=== PATIENT | female | born 1955 | race Caucasian/White ===

== ENCOUNTER 2021-05-04 14:17 | Outpatient (CLI) | payer MEDICARE | END 2021-05-04 14:18 | disposition home or self-care (01) | LOC: CSHMAMMO 14:17 | PROVIDERS: ATTEND Obstetrics & Gynecology | DX: Z12.31 Encounter for screening mammogram for malignant neoplasm of breast (principal); Z80.3 Family history of malignant neoplasm of breast | CPT/HCPCS: 77063; 77067 ==

== ENCOUNTER 2024-04-09 11:44 | Outpatient (CLI) | payer MEDICARE | END 2024-04-09 11:45 | disposition home or self-care (01) | LOC: CSHMAMMO 11:44 | PROVIDERS: ATTEND Obstetrics & Gynecology | DX: Z12.31 Encounter for screening mammogram for malignant neoplasm of breast (principal); Z80.3 Family history of malignant neoplasm of breast | CPT/HCPCS: 77063; 77067 ==

== ENCOUNTER 2024-04-11 18:38 | Emergency (ER) | payer MEDICARE | END 2024-04-11 19:59 | disposition home or self-care (01) | LOC: CSHERS 18:38 | DX: L98.9 Disorder of the skin and subcutaneous tissue, unspecified (principal); M79.89 Other specified soft tissue disorders | CPT/HCPCS: 99283 ==